=== PATIENT | male | born 1950 | race Caucasian/White ===

== ENCOUNTER 2017-03-01 06:54 | Emergency (ER) | payer MEDICARE, OTHER ==
[2017-03-01 06:13] LABS: HEMATOCRIT 39.9 % (40.0-51.0); HEMOGLOBIN 14.3 g/dL (13.6-17.8); MEAN CORPUS HGB CONC 35.8 g/dL (32.0-36.0); MEAN CORPUSCULAR HEMOGLOB 31.2 pg (26.0-34.0); MEAN CORPUSCULAR VOLUME 86.9 fL (80-100); MEAN PLATELET VOLUME 11.3 fL (9.2-13.0); PLATELET COUNT 189 10/3/uL (150-400); RBC DISTRIBUTION WIDTH 12.5 % (12.0-16.0); RED CELL COUNT 4.59 10/6/uL (4.7-6.1); WHITE BLOOD CELLS 7.8 10/3/uL (4.5-10.5)
[2017-03-01 06:16] LABS: MANUAL DIFF YES %
[2017-03-01 06:18] LABS: INTERNATIONAL NORMAL RATI 1.1 UNITS (-); PARTIAL THROMBO TIME 26.7 SEC (22.5-37.2); PROTIME (NOT ORD) 13.6 SEC (12.0-14.5)
[2017-03-01 06:28] LABS: BUN (BLOOD UREA NITROGEN) 20 MG/DL (6-23); CHEST PAIN PROFILE TAT 0 Hrs 21 Mins; CHLORIDE, SERUM 105 MMOL/L (96-112); CO2 (CARBON DIOXIDE) 26 MMOL/L (24-34); GFR AFRICAN AMERICAN 107 ML/MIN (>=60); GFR NON AFRICAN AMERICAN 92 ML/MIN (>=60); GLUCOSE, SERUM 87 MG/DL (60-99); POTASSIUM, SERUM 4.2 MMOL/L (3.5-5.3); SODIUM, SERUM 141 MMOL/L (135-148); TROPONIN I <0.02 NG/ML (<0.05)
[2017-03-01 07:02] LABS: ER DIFF TAT 0 Hrs 55 Mins; LYMPHOCYTES 26 %; LYMPHOCYTES ABSOLUTE (CALC) 2.03 10/3/uL (0.67-4.30); MONOCYTES 16 %; MONOCYTES ABSOLUTE (CALC) 1.25 10/3/uL (0.21-1.20); NEUTROPHILS ABSOLUTE (CALC) 4.52 10/3/uL (2.02-8.40); PLATELET ESTIMATE ADQ (ADEQUATE); RBC MORPHOLOGY NORM (NORMAL); SEGMENTED NEUTROPHIL (0) 58 %; TOTAL NUCLEATED CELLS 100
[2017-03-15] MEDS ORDERED: BP MEDICATION (16:15)
[2017-03-15] MEDS ORDERED: RANITIDINE300 MG PO (16:18)
[2017-03-15] MEDS ORDERED: NORV10 PO (16:18)
[2017-03-15] MEDS ORDERED: PEP20 PO (16:19)
[2017-03-15] MEDS ORDERED: XALAT OPH (16:50)
== END 2017-03-01 08:55 | disposition home or self-care (01) ==
LOC: ER 06:54
PROVIDERS: Specialist
DX: K21.9 Gastro-esophageal reflux disease without esophagitis (principal); I10 Essential (primary) hypertension; Z85.820 Personal history of malignant melanoma of skin; Z88.8 Allergy status to other drugs, medicaments and biological substances
CPT/HCPCS: 71010; 80048; 83735; 84484; 85025; 85610; 85730; 93005; 99285; A9270-GY

== ENCOUNTER 2017-03-16 11:57 | Day surgery (SDC) | payer MEDICARE, OTHER ==
--- NOTE | ~2017-03-16 | OP ---
Record Of Operation [facility] [address] [place]. [address] NAME: GOLDEN FERNANDEZ : 48 STATUS : [facility]#: [id number] AGE: 66 ADM/REG DATE : 03/16/17 MR#: [id number] REPORT SERV DATE: 03/17/17 DICTATED BY: REYNALDO GALE DATE: 03/16/17 REPORT STATUS : Draft TRANSCRIBED BY: MODL DATE: 03/16/17 DATE OF PROCEDURE: 03/16/2017 PREOPERATIVE DIAGNOSIS: Melanoma in situ, forehead. POSTOPERATIVE DIAGNOSIS: Melanoma in situ, forehead. PROCEDURE PERFORMED: 1. 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 2. Complex layered closure of 6.5 x 3 cm defect. SURGEON: Reynaldo Gale M.D. ELEVATOR ERECTOR HELPER: None. ANESTHESIA: MAC anesthesia with local lidocaine, 1:100,000 epinephrine. COMPLICATIONS: None. CONDITION: Stable to recovery. INDICATIONS: A 66-year-old male with melanoma in situ of the central forehead. The risks, benefits, and alternatives to wide excision were explained. The plan was for delayed closure if the defect was too large to close primarily. If this could be closed primarily, we would proceed with that approach and await final pathology margin and be prepared to go back for re-excision if necessary. PROCEDURE IN DETAIL: The patient was identified in preoperative holding, taken back to the operating room, and placed supine on the operating room table. MAC anesthesia was established with propofol. The forehead was examined with 2.5 x loupe magnification and headlight illumination. An 0.5 cm margin was marked around the in situ melanoma. It was infiltrated subcutaneously with 5 mL of 1% lidocaine, 1:100,000 epinephrine. He was prepped and draped in a standard fashion for the operation. A 15 blade was used to make the skin incision around the lesion in the area marked. Needle tip cautery on 10 cut coagulation was used to excise down to the frontalis muscle and the lesion was completely excised circumferentially and it was stitched at 12 o'clock and sent for permanent pathology analysis. The wound was 3 x 3.5 cm in dimension. Appeared to be able to be closed vertically in a single and then a straight line closure, so that margins could be assessed if necessary after final pathology, so a decision was made to close the wound. Burow's triangles had to be removed at 6 and 12 o'clock. This added in addition 3 x 6.5 cm. The galea was undercut parallel to the closure on the right and left side. This was done with needle cautery. The #1-0 Prolene suture in a [id number] fashion was used to close the central portion of the wound. Two separate interrupted sutures were placed. The superior and inferior aspects of the wound were closed with 3-0 Vicryl and a 4-0 interrupted Prolene suture. Steri-Strips were placed. The Record Of Operation [address] [place]. [address] NAME: GOLDEN FERNANDEZ : 48 STATUS : [facility] PAT#: [id number] AGE: 66 ADM/REG DATE : 03/16/17 MR#: [id number] REPORT SERV DATE: 03/17/17 DICTATED BY: REYNALDO GALE DATE: 03/16/17 REPORT STATUS : Draft TRANSCRIBED BY: MODL DATE: 03/16/17 patient was awakened and taken to recovery in stable condition. PH/MODL Reynaldo Gale M.D. / [id number] CC: Liya Moe LARRY
[~2017-03-16 11:57] MED LIST: BP MEDICATION; NORV10 PO; PEP20 PO; RANITIDINE300 MG PO; XALAT OPH
[2017-03-16 12:41] LABS: HEMATOCRIT 38.5 % (40.0-51.0); HEMOGLOBIN 13.2 g/dL (13.6-17.8)
[2017-03-16 12:54] LABS: BUN (BLOOD UREA NITROGEN) 17 MG/DL (6-23); CALCIUM, SERUM 9.1 MG/DL (8.5-10.4); CHLORIDE, SERUM 109 MMOL/L (96-112); CO2 (CARBON DIOXIDE) 27 MMOL/L (24-34); CREATININE 0.85 MG/DL (0.70-1.30); GFR AFRICAN AMERICAN 104 ML/MIN (>=60); GFR NON AFRICAN AMERICAN 90 ML/MIN (>=60); GLUCOSE, SERUM 99 MG/DL (60-99); POTASSIUM, SERUM 4.1 MMOL/L (3.5-5.3); SODIUM, SERUM 142 MMOL/L (135-148)
== END 2017-03-16 20:23 | disposition home or self-care (01) ==
LOC: SDC 11:57
PROVIDERS: Specialist
PROC: 0HB1XZZ Excision of Face Skin, External Approach (ICD-10-PCS; principal; 2017-03-16 14:00)
DX: D03.39 Melanoma in situ of other parts of face (principal); I10 Essential (primary) hypertension; E78.00 Pure hypercholesterolemia, unspecified; K21.9 Gastro-esophageal reflux disease without esophagitis; H40.9 Unspecified glaucoma; Z88.2 Allergy status to sulfonamides; Z79.899 Other long term (current) drug therapy; Z98.890 Other specified postprocedural states
CPT/HCPCS: 70250; 80048; 85014; 85018; 88305; A9270-GY; J0690; J2250; J2370; J3010